=== PATIENT | female | born 1985 | race Caucasian/White ===

== ENCOUNTER 2018-01-01 19:43 | Inpatient (IN) | payer MEDICAID ==
[2018-01-01] MEDS ORDERED: LIDOCAINE 1% (MPF) 30 ML INJ INJ (22:00)
[2018-01-01] MEDS ORDERED: CARBOPROST 250 MCG INJ IM (22:00)
[2018-01-01] MEDS ORDERED: MISOPROSTOL 200 MCG TAB PR (22:00)
[2018-01-01] MEDS ORDERED: OXYTOCIN 30 UNITS/LR 500 ML IV (22:00)
[2018-01-01 22:09] LABS: ADD MAN DIFF? NO
[2018-01-01 22:12] LABS: BASOPHILS % 0.3 % (0.0-2.0); EOSINOPHILS # 0.1 10^3/ul (0.0-0.5); EOSINOPHILS % 0.7 % (0.0-7.0); HEMATOCRIT 40.9 % (37.0-47.0); HEMOGLOBIN 14.3 g/dl (12.0-16.0); LYMPHOCYTES % 20.1 % (15.0-51.0); MEAN CORPUSCULAR HEMOGLOBIN 31.4 pg (29.0-33.0); MEAN CORPUSCULAR VOLUME 89.7 fl (82.0-101.0); MEAN PLATELET VOLUME 11.6 fl (7.4-10.4); MONOCYTES % 9.7 % (0.0-11.0); NEUTROPHIL # 6.6 10^3/ul (1.6-7.5); NEUTROPHILS % 66.7 % (39.0-77.0); PLATELET COUNT 195 10^3/UL (140-415); RED BLOOD COUNT 4.56 10^6/ul (4.20-5.40)
[2018-01-01 22:12] LABS: WHITE BLOOD COUNT 9.8 10^3/ul (4.8-10.8)
[2018-01-01] MEDS: LACTATED RINGER'S 1,000 ML IV* (22:15)
[2018-01-01 22:32] LABS: INR 0.82; PROTIME 11.3 Sec (11.9-14.9); PT RATIO 0.9
[2018-01-01 22:33] LABS: PARTIAL THROMBOPLASTIN TIME 26.4 Sec (25.0-35.0)
[2018-01-02] MEDS ORDERED: FENTAnyl 2MCG/ML-ROPIV 0.2% 100 ML BAG EPI
[2018-01-02] MEDS: LACTATED RINGER'S 1,000 ML IV* (00:04)
[2018-01-02] MEDS ORDERED: DIPHENHYDRAMINE 50 MG INJ IV ×2 (01:30)
[2018-01-02] MEDS ORDERED: KETOROLAC 30 MG INJ IV ×2 (01:30)
[2018-01-02] MEDS ORDERED: ZOLPIDEM 5 MG TAB PO ×2 (01:30→11:00)
[2018-01-02] MEDS ORDERED: ONDANSETRON 4 MG INJ IV ×2 (01:30)
[2018-01-02] MEDS ORDERED: NALOXONE (0.4 MG/ML) INJ IV ×2 (01:30)
[2018-01-02] MEDS ORDERED: HYDROmorphONE 0.5 MG/0.5 ML SYG IV ×4 (01:30)
[2018-01-02] MEDS: OXYTOCIN 30 UNITS/LR 500 ML IV ×2 (07:18→07:43)
[2018-01-02] MEDS: METHYLERGONOVINE 0.2 MG INJ IM (08:51)
[2018-01-02] MEDS ORDERED: CARBOPROST 250 MCG INJ IM (11:00)
[2018-01-02] MEDS ORDERED: OXYCODONE/ASPIRIN (4.88/325) TAB PO ×2 (11:00)
[2018-01-02] MEDS ORDERED: METHYLERGONOVINE 0.2 MG INJ IM (11:00)
[2018-01-02] MEDS ORDERED: OXYTOCIN 30 UNITS/LR 500 ML IV (11:00)
[2018-01-02] MEDS ORDERED: MISOPROSTOL 200 MCG TAB PR (11:00)
[2018-01-02] MEDS: IBUPROFEN 600 MG TAB PO ×3 (11:14→23:44)
[2018-01-02] MEDS: WITCH HAZEL/GLYCERIN PAD PR (11:14)
[2018-01-02] MEDS: LANOLIN 7 GM TUBE TOP (11:14)
[2018-01-02] MEDS: BENZOCAINE 20% 56 ML SPRAY TOP (11:14)
[2018-01-02 16:09] LABS: RAPID PLASMA REAGIN NONREACTIVE (NR)
[2018-01-02] MEDS: SENNA/DOCUSATE NA (8.6MG/50MG) TAB PO (21:41)
[2018-01-03] MEDS: MAGNESIUM HYDROXIDE 30ML CUP PO (06:23)
[2018-01-03] MEDS: IBUPROFEN 600 MG TAB PO ×4 (06:23→23:49)
[2018-01-03] MEDS: SENNA/DOCUSATE NA (8.6MG/50MG) TAB PO ×2 (09:39→21:34)
[2018-01-03 09:42] LABS: ADD MAN DIFF? NO
[2018-01-03 09:50] LABS: WHITE BLOOD COUNT 11.3 10^3/ul (4.8-10.8)
[2018-01-03 09:50] LABS: BASOPHILS % 0.3 % (0.0-2.0); EOSINOPHILS # 0.1 10^3/ul (0.0-0.5); EOSINOPHILS % 0.6 % (0.0-7.0); HEMATOCRIT 38.5 % (37.0-47.0); HEMOGLOBIN 13.2 g/dl (12.0-16.0); LYMPHOCYTES % 17.3 % (15.0-51.0); MEAN CORPUSCULAR HGB CONC 34.3 g/dl (32.0-37.0); MEAN CORPUSCULAR VOLUME 93.4 fl (82.0-101.0); MEAN PLATELET VOLUME 12.5 fl (7.4-10.4); MONOCYTE # 0.9 10^3/ul (0.3-0.9); MONOCYTES % 7.5 % (0.0-11.0); NEUTROPHIL # 8.2 10^3/ul (1.6-7.5); NEUTROPHILS % 72.4 % (39.0-77.0); PLATELET COUNT 183 10^3/UL (140-415); RED BLOOD COUNT 4.12 10^6/ul (4.20-5.40); RED CELL DISTRIBUTION WIDTH 13.2 % (11.5-14.5)
[2018-01-04] MEDS: IBUPROFEN 600 MG TAB PO ×2 (06:07→11:37)
[2018-01-04] MEDS: SENNA/DOCUSATE NA (8.6MG/50MG) TAB PO (09:50)
[2018-01-04] MEDS: DIPHTH/TET/ACEL PERTUSS (ADULT) 0.5 ML VIAL IM* (11:02)
== END 2018-01-04 13:15 | disposition home or self-care (01) | DRG 775 ==
LOC: OBT 19:43 → L-D 01-02 07:54 → PP1 01-02 09:45 → L-D 20:00 → OBT 21:30 → L-D 21:30
PROVIDERS: Obstetrics & Gynecology
PROC: 10E0XZZ Delivery of Products of Conception, External Approach (ICD-10-PCS; principal; 2018-01-01)
PROC: 0KQM0ZZ Repair Perineum Muscle, Open Approach (ICD-10-PCS; 2018-01-01)
PROC: 3E033VJ Introduction of Other Hormone into Peripheral Vein, Percutaneous Approach (ICD-10-PCS; 2018-01-01)
DX: O48.0 Post-term pregnancy (principal); Z3A.40 40 weeks gestation of pregnancy; O70.1 Second degree perineal laceration during delivery; Z37.0 Single live birth
CPT/HCPCS: 62319; 85025; 85610; 85730; 86592; 86850; 86900; 86901; 90715

== ENCOUNTER 2018-10-21 10:17 | Emergency (ER) | payer MEDICAID | END 2018-10-21 12:36 | disposition home or self-care (01) | LOC: FTE 10:17 | DX: R07.0 Pain in throat (principal) | CPT/HCPCS: 99283; Z7502 ==